=== PATIENT | male | born 1935 | race Caucasian/White ===

== ENCOUNTER 2020-03-22 09:40 | Emergency (ER) | payer MEDICARE ==
--- NOTE | 2020-03-22 09:53 | ED Physician Documentation ---
PD HPI UPPER EXT INJURY - Stated complaint Stated Complaint: LEFT ARM LAC - Chief complaint Chief Complaint: Laceration - History obtained from History obtained from: Patient, Family (spouse) - History of Present Illness Location: Left, Arm Type of injury: Fall, Blunt / blow (he says he was doing stretching exercise in bathroom with leg up on sink edge, and he lost balance and fell sideways, striking left upper arm on sink edge/corner. Did not fall to ground nor strike head. Has large laceration left upper arm. 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 No: Moving Associated symptoms: No: Weakness, Numbness Contributing factors: Anticoagulated. No: Prior ortho surgery Similar symptoms before: Has not had sx before Review of Systems Constitutional: denies: Fever, Chills Nose: denies: Rhinorrhea / runny nose, Congestion Throat: denies: Sore throat Cardiac: denies: Chest pain / pressure Respiratory: denies: Cough GI: denies: Abdominal Pain, Nausea, Vomiting, Diarrhea Neurologic: denies: Altered mental status, Head injury PD PAST MEDICAL HISTORY - Past Medical History Past Medical History: No Cardiovascular: None Neuro: None Endocrine/Autoimmune: None - Allergies Allergies/Adverse Reactions: Allergies Allergy/AdvReac Type Severity Reaction Status Date / Time Penicillins Allergy Anaphylaxis Verified 03/22/20 09:49 PD ED PE NORMAL - Vitals Vital signs reviewed: Yes - General General: Alert and oriented X 3, No acute distress, Well developed/nourished - HEENT HEENT: Atraumatic - Neck Neck: Supple, no meningeal sign, No bony TTP, No adenopathy - Cardiac Cardiac: No murmur - Respiratory Respiratory: Clear bilaterally, Other (no chestwall tendrness) - Abdomen Abdomen: Soft, Non tender - Derm Derm: Normal color, Warm and dry - Extremities Extremities: Other (left upper arm anteriorly over mid biceps shows a diagonal laceration full thickness through skin and fatty layer. It exposes the muscle sheath without disruption of it. Brachial artery/vein noted and intact. Good biceps flexion strength. ) - Neuro Neuro: Alert and oriented X 3, No motor deficit, No sensory deficit, Normal spee ch Eye Opening: Spontaneous Motor: Obeys Commands Verbal: Oriented GCS Score: 15 Results - Vitals Vitals: Vital Signs - 24 hr 03/22/20 03/22/20 03/22/20 09:41 11:26 12:21 Temperature 36.7 C 36.7 C 36.5 C Heart Rate 78 51 L 52 L Respiratory 19 18 18 Rate Blood Pressure 167/75 H 151/73 H 150/83 H O2 Saturation 99 100 98 Oxygen O2 Source Room air - Labs Labs: Laboratory Tests 03/22/20 10:10 Whole Blood INR 1.8 H Procedures - Laceration (location) left upper arm Length in cm: 6 Wound type: Linear, Into subcut fat, Clean. No: Into muscle Neurovascular status: Sensory intact, Motor intact, Vascular intact Tendon involvement: Tendon intact Anesthesia: Lidocaine 1% with epi Wound Preparation: Irrigated copiously NS, Wound explored, To the base, Wound edges modified (rough torn edge trimmed to crisp.). No: FB identified Deep layer closure: Vicryl, size #-0 - enter number (5), # sutures - enter number (10), Other (running subdermal) Skin layer closure: Nylon, Running, Size #-0 - enter number (4), Sutures - enter # (28) Other: Patient tolerated well, No complications, Neurovascular intact, Dressing applied, Tetanus UTD Complexity: Intermediate PD MEDICAL DECISION MAKING - ED course Complexity details: considered differential (fell over and struck upper arm, but did not fall to ground nor strike head. So did not jocelynn feel it was a "trauma" per se. ), d/w patient Departure - Departure Disposition: 01 Home, Self Care Clinical Impression: Laceration of left upper arm Qualifiers: Encounter type: initial encounter Qualified Code(s): S41.112A - Laceration without foreign body of left upper arm, initial encounter Condition: Stable Instructions: ED Laceration All Comments: It is okay to wash and shower. Clean off the wound twice a day with soap and water, or peroxide and water. Apply some antibiotic ointment to it to keep it moist. Also to watch for signs of infection such as purulence, redness or increasing pain. Return to your primary care or the ER at the specified time for suture removal. Suture removal 10 to 12 days. Light activity with the arm only for 3 days or so and then progress to normal after that. Tylenol as needed for pain Discharge Date/Time: 03/22/20 12:22
[2020-03-22] MEDS ORDERED: LIDOCAINE 1%-EPI 1:100000 20 ML MDV SUBQ STA (09:59)
[2020-03-22 12:22] VITALS: BP 150/83
== END 2020-03-22 12:22 | disposition home or self-care (01) ==
LOC: ED 09:40
DX: S41.112A Laceration without foreign body of left upper arm, initial encounter (principal); X50.1XXA Overexertion from prolonged static or awkward postures, initial encounter; W18.49XA Other slipping, tripping and stumbling without falling, initial encounter; Y93.B9 Activity, other involving muscle strengthening exercises; Y92.002 Bathroom of unspecified non-institutional (private) residence as the place of occurrence of the external cause; Z79.01 Long term (current) use of anticoagulants
CPT/HCPCS: 12032; 85610

== ENCOUNTER 2020-03-24 13:01 | Observation (INO) | payer MEDICARE ==
[2020-03-24] MEDS ORDERED: NITROGLYCERIN SL 0.4 MG TABLET SL STA ×2 (13:44→14:44)
--- NOTE | 2020-03-24 13:46 | ED Physician Documentation ---
History of Present Illness - Stated complaint Stated Complaint: CHEST PX - Chief complaint Chief Complaint: Cardiac - Additonal information Additional information: 84-year-old male presents to the emergency department for evaluation of left-s ided chest pain that began this morning about 9 AM. He reports that it feels like a sprain. Pain radiates from the left to the right side. No radiation to the arm of the jaw. No vomiting or diaphoresis. He does endorse fatigue. He has a history of atrial fibrillation but denies any history of coronary artery disease or previous SC. He has a history of stress test and echocardiograms completed a number of years ago in [place]. He is in the process of moving to [facility]. denies dyspnea, deneis n/v/urianry frequency, abdominal pain Non-smoker occasional alcohol. meds: aldactone 25 mg qd bumex 0.5 mg qod bisoprolol 10 mg qd coumadin 2.5 mg wed; 5 mg every other day PD PAST MEDICAL HISTORY - Past Medical History Cardiovascular: None Neuro: None Endocrine/Autoimmune: None - Allergies Allergies/Adverse Reactions: Allergies Allergy/AdvReac Type Severity Reaction Status Date / Time Penicillins Allergy Anaphylaxis Verified 03/24/20 13:15 PD ED PE NORMAL - General General: Alert and oriented X 3, No acute distress - HEENT HEENT: Atraumatic, EOMI - Neck Neck: Supple, no meningeal sign, No adenopathy - Cardiac Cardiac: Strong equal pulses, Other (irregularly irregular). 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 Eye Opening: Spontaneous Motor: Obeys Commands Verbal: Oriented GCS Score: 15 Results - Vitals Vitals: Vital Signs - 24 hr 03/24/20 03/24/20 03/24/20 13:03 13:45 14:26 Temperature 37 C Heart Rate 92 99 101 H Respiratory 16 14 22 Rate Blood Pressure 138/83 H 138/86 H 139/42 H O2 Saturation 98 100 98 Oxygen O2 Source Room air - EKG (time done) 1308 Rate: Rate (enter#) (105) Rhythm: Atrial fibrillation Mcguffey: Normal Intervals: Normal [place] QRS: Normal Ischemia: ST depression (lateral leads) Compare to prior EKG: Old EKG unavailable - Labs Labs: Laboratory Tests 03/24/20 03/24/20 03/24/20 13:40 13:40 13:40 WBC 7.0 RBC 3.57 L Hgb 12.3 L Hct 34.7 L MCV 97.2 H MCH 34.5 H MCHC 35.4 RDW 13.8 Plt Count 151 MPV 9.7 Neut # (Auto) 5.6 Lymph # (Auto) 0.6 L Craven # (Auto) 0.5 Eos # (Auto) 0.3 Baso # (Auto) 0.0 Absolute Nucleated RBC 0.00 Nucleated RBC % 0.0 Manual Slide Review Indicated WBC Morphology NORMAL APPEARANCE Platelet Estimate NORMAL (130-450,000) Platelet Morphology NORMAL APPEARANCE RBC Morph Micro Appear 1+ ANISOCYTOSIS PT INR Sodium 130 L Potassium 4.9 Chloride 93 L Carbon Dioxide 28 Anion Gap 9.0 BUN 24 H Creatinine 1.0 Estimated GFR (MDRD) 71 L Glucose 107 H Calcium 9.5 Total Bilirubin 0.7 AST 33 ALT 19 Alkaline Phosphatase 74 Troponin I High Sens 16.3 Total Protein 7.6 Albumin 4.1 Globulin 3.5 Albumin/Globulin Ratio 1.2 Lipase 85 H 03/24/20 13:40 WBC RBC Hgb Hct MCV MCH MCHC RDW Plt Count MPV Neut # (Auto) Lymph # (Auto) Craven # (Auto) Eos # (Auto) Baso # (Auto) Absolute Nucleated RBC Nucleated RBC % Manual Slide Review WBC Morphology Platelet Estimate Platelet Morphology RBC Morph Micro Appear PT 27.0 H INR 2.6 H Sodium Potassium Chloride Carbon Dioxide Anion Gap BUN Creatinine Estimated GFR (MDRD) Glucose Calcium Total Bilirubin AST ALT Alkaline Phosphatase Troponin I High Sens Total Protein Albumin Globulin Albumin/Globulin Ratio Lipase - Rads (name of study) CXR Radiology: Final report received (It is compatible COPD with probable scarring in the lung apices. No acute consolidation. Cardiomegaly.) PD MEDICAL DECISION MAKING - ED course Complexity details: reviewed results, re-evaluated patient, considered differential, d/w patient, d/w family ED course: 84-year-old male presents to the emergency department with a chief complaint of left-sided chest pain that radiated to the right chest. He does have a history of atrial fibrillation but no previous history of coronary artery disease SC or stent placement. Initial EKG showed atrial fib with mild ST depression in the lateral leads. High-sensitivity troponin was not elevated. However he has a heart score of 5 putting him at moderate risk for a major adverse cardiac event. He will be brought into the hospital in observation status for likely stress test and echocardiogram tomorrow. I have spoken with admitting hospitalist Dr. Johanny ernandez who is agreed to evaluate the patient. His chest x-ray shows no acute focal opacity though cardiomegaly is appreciated. He is anticoagulated on Coumadin with an INR that is therapeutic. Departure - Departure Disposition: ED Place in Observation Clinical Impression: Hyponatremia Chest pain Qualifiers: Chest pain type: unspecified Qualified Code(s): R07.9 - Chest pain, unspecified Atrial fibrillation Qualifiers: Atrial fibrillation type: longstanding persistent Qualified Code(s): I48.11 - Longstanding persistent atrial fibrillation
--- NOTE | 2020-03-24 13:55 | XRAY Report ---
PROCEDURE: Chest 1 View X-Ray INDICATIONS: Chest pain TECHNIQUE: One view of the chest was acquired. COMPARISON: None. FINDINGS: Surgical changes and devices: None. Lungs and pleura: There are linear opacities in the lung apices, left greater than right, suggestive of scarring. Hyperinflation of the lungs demonstrated with mild flattening of the hemidiaphragms com patible with COPD. No focal consolidation. No pleural effusions or pneumothorax. Mediastinum: There is a suspected hiatal hernia. Heart size is enlarged. Bones and chest wall: No suspicious bony lesions. Overlying soft tissues appear unremarkable. IMPRESSION: 1. Findings compatible with COPD with probable scarring in the lung apices. No acute consolidation. 2. Cardiomegaly. Reviewed by: Nabil Salcedo MD on 03/24/2020 1:54 PM PDT Approved by: Nabil Salcedo MD on 03/24/2020 1:54 PM PDT Station ID: [id number]
[2020-03-24 13:58] LABS: BASOPHILS % (AUTO) 0.6 %; EOSINOPHILS # (AUTO) 0.3 10^3/uL (0.0-0.7); EOSINOPHILS % (AUTO) 3.8 %; HGB - HEMOGLOBIN 12.3 g/dL (14.0-18.0); LYMPHOCYTES # (AUTO) 0.6 10^3/uL (1.5-3.5); LYMPHOCYTES % (AUTO) 7.8 %; MEAN CORPUSCULAR HEMOGLOBIN 34.5 pg (27.0-31.0); MEAN CORPUSCULAR HGB CONC 35.4 g/dL (32.0-36.0); MEAN CORPUSCULAR VOLUME 97.2 fL (80.0-94.0); MEAN PLATELET VOLUME 9.7 fL (7.4-11.4); MONOCYTES # (AUTO) 0.5 10^3/uL (0.0-1.0); MONOCYTES % (AUTO) 7.1 %; NEUTROPHILS # (AUTO) 5.6 10^3/uL (1.5-6.6); NEUTROPHILS % (AUTO) 80.1 %; PLT - PLATELET COUNT 151 10^3/uL (130-450); RED BLOOD COUNT 3.57 10^6/uL (4.70-6.10); RED CELL DISTRIBUTION WIDTH 13.8 % (12.0-15.0)
[2020-03-24 14:08] LABS: ALBUMIN 4.1 g/dL (3.2-5.5); ALBUMIN/GLOBULIN RATIO 1.2 (1.0-2.2); BILIRUBIN,TOTAL 0.7 mg/dL (0.2-1.0); CALCIUM 9.5 mg/dL (8.5-10.3); TOTAL PROTEIN 7.6 g/dL (6.7-8.2)
[2020-03-24 14:19] LABS: INR 2.6 (0.8-1.2)
[2020-03-24 14:30] LABS: PLATELET ESTIMATE, MANUAL NORMAL (130-450,000) (NORMAL); PLATELET MORPHOLOGY NORMAL APPEARANCE (NORMAL); RBC MORPHOLOGY (MULTIPLE) 1+ ANISOCYTOSIS (NORMAL)
[2020-03-24] MEDS ORDERED: SODIUM CHLORIDE FLUSH 0.9% 10 ML SYRINGE IVP PRN (14:55)
[2020-03-24] MEDS ORDERED: ONDANSETRON 4 MG/2 ML VIAL IVP PRN (14:55)
[2020-03-24] MEDS ORDERED: MORPHINE 2 MG/ML CARPUJECT IVP PRN (14:55)
[2020-03-24] MEDS ORDERED: ACETAMINOPHEN 325 MG TABLET PO PRN (14:55)
[2020-03-24] MEDS ORDERED: NITROGLYCERIN SL 0.4 MG TABLET SL PRN (15:00)
[2020-03-24] MEDS ORDERED: SODIUM CHLORIDE 0.9% 1,000 ML IV SCH (15:00)
--- NOTE | 2020-03-24 15:10 | HISTORY & PHYSICAL EXAMINATION ---
Chief Complaint - Chief Complaint Chief Complaint: chest pain History of Present Illness - Admitted From Admitted From:: ER - History Obtained From Records Reviewed: [facility] History obtained from: Pt - History of Present Illness HPI Comment/Other: This is a 84-year-old male with A past medical history of atrial fibrillation on Coumadin, hypertension, COPD, who presents to the emergency department for complain of bilateral chest pain that began this morning about 9 AM. Patient reported he had a fall on Sunday when he did exercise, then he go to the ER have 21 suture on his left arm. After he had a fall, he feels some chest pain bilaterally. He reports that it feels like a sprain. Pain is sharp and radiates from the left to the right side chest, positional pain as well. He report laying at bed he feel more pain, but siting up he feel less pain. He denies radiation to the arm of the jaw, denies nausea or vomiting or diaphoresis. He has a history of stress test and echocardiograms completed a number of years ago in [place]. He bought a house in here and He is in the process of moving to [facility]. He denies fever, shortness of breathing, abdominal pain, headache, nausea, vomiting, diarrhea.In routine laboratory testing in the ER, initially troponin is negative for acute NC, EKG show A fibrillation. Chest x- ray review compatible with COPD, no acute consolidation, cardiomegaly. Patient is planning to have stress test in the hospital. Discussed the care goal with the patient, patient would like to have full code. History - Past Medical History Cardiovascular: reports: None Respiratory: reports: COPD Neuro: reports: None Endocrine/Autoimmune: reports: None - Past Surgical History General: reports: Hiatal hernia repair - Family & Social History Family History: Mother: , Father: , COPD/Emphysema Family History Comment/Other: Patient reported for his father at age 48 from COPD complication. His mother from ageing, he does not know exactly etiology. 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[employer], he bought a house in [facility] and in the process to move to the [place].He denies any history of cigarette smoking, alcohol abuse or drug problem - POLST Patient has POLST: No Meds/Allgy - Home Medications Home Medications: Ambulatory Orders Medication Instructions Recorded Confirmed Bumetanide 0.5 mg PO DAILY 03/24/20 03/24/20 Cholecalciferol (Vitamin D3) 25 mcg PO DAILY 03/24/20 03/24/20 [Vitamin D3] Spironolactone 25 mg PO DAILY 03/24/20 03/24/20 Vitamin B Complex 1 cap PO DAILY 03/24/20 03/24/20 Warfarin [Coumadin] 3.5 mg PO .Sunday03/24/20 03/24/20 Warfarin [Coumadin] 5 mg PO .[id number] 03/24/20 03/24/20 bisoproloL fumarate [Bisoprolol 10 mg PO DAILY 03/24/20 03/24/20 Fumarate] - Allergies Allergies/Adverse Reactions: Allergies Allergy/AdvReac Type Severity Reaction Status Date / Time Penicillins Allergy Anaphylaxis Verified 03/24/20 13:15 Review of Systems - Constitutional Constitutional: denies: Fatigue, Fever, Chills, Weakness, Poor appetite, Diaphoresis, Night sweats - Eyes Eyes: denies: Pain, Blurred vision, Spots in vision, Field loss, Vision loss, Dipolpia - Ears, Nose & Throat Ears, Nose & Throat: denies: Ear pain, Vertigo, Nasal pain, Nasal discharge, Nosebleeds, Nasal congestion, Sore throat, Mouth lesions, Bleeding gums - Cardiovascular Cariovascular: reports: Chest pain. denies: Irregular heart rate, Palpitations, Edema, Lightheadedness, Syncope, Exertional dyspnea, Decr. exercise tolerance - Respiratory Respiratory: denies: Cough, Sputum production, Wheezing, Snoring, Hemoptysis, Orthopnea, SOB at rest, SOB with exertion, Apnea - Gastrointestinal Gastrointestinal: denies: Abdominal pain, Constipation, Diarrhea, Rectal bleeding, Black stools, Bloody stools, Nausea, Vomiting, Margarito blood emesis, Coffee grounds emesis - Genitourinary Genitourinary: denies: Dysuria, Frequency, Urgency, Hematuria, Incontinence, Flank pain, Nocturia - Musculoskeletal Musculoskeletal: denies: Muscle pain, Back pain, Muscle aches, Stiffness, Limited range of motion, Muscle weakness, Gout, Joint pain - Integumentary Integumentary: denies: Rash, Pruritis, Lesions, Dryness, Lumps, Pigment changes - Neurological Neurological: denies: General weakness, Focal weakness, Headache, Dizziness, Numbness, Memory problems, Pre-existing deficit, Abnormal gait, Seizures, Incoordination, Slurred speech - Psychiatric Psychiatric: denies: Depression, Suicidal, Delusions, Hallucinations, Homicidal - Endocrine Endocrine: denies: Polyuria, Polydypsia, Polyphagia, Intolerance to cold - Hematologic/Lymphatic Hematologic/Lymphatic: denies: Anemia, Petechiae, Blood clots, Lymphadenopathy, Bleeding tendencies Exam - Vital Signs Vital Signs: Vital Signs x48h Temp Pulse Resp BP Pulse Ox 03/24/20 14:26 101 H 22 139/42 H 98 03/24/20 13:45 99 14 138/86 H 100 03/24/20 13:03 37 C 92 16 138/83 H 98 - Physical Exam General Appearance: positive: No acute distress, Alert. negative: Lethargic Eyes Bilateral: positive: Normal inspection, PERRL, No lid inflammation ENT: positive: ENT inspection nml, No signs of dehydration. negative: Purulent nasal drainage, Dry mucous membranes Neck: positive: Nml inspection, Thyroid nml, Trachea midline. negative: Thyromegaly, Stiff neck, Tracheal deviation Respiratory: positive: Chest non-tender, No respiratory distress. negative: Wheezes, Rales, Rhonchi Cardiovascular: positive: Irregularly irregular, Systolic murmur, Diastolic murmur. negative: No murmur, Tachycardia, Bradycardia Peripheral Pulses: positive: 2+ Abdomen: positive: Non-tender, No organomegaly, Nml bowel sounds, No distention. negative: Tenderness, Guarding, Rebound Back: positive: Nml inspection. negative: CVA tenderness (R), CVA tenderness (L) Skin: positive: Color nml, No rash, Warm, Dry, Other (left arm with dress, pt re port he had suture on left arm after he had a fall. he denies pain, Full ROM). negative: Cyanosis, Diaphoresis, Pallor Extremities: positive: Non-tender, Full ROM. negative: Calf tenderness, Jen's sign/cords Neurologic/Psychiatric: positive: Oriented x3, Motor nml, Sensation nml, Mood/affect nml. negative: Weakness, Sensory loss, Facial droop, Slurred/abnml speech, Depressed mood/affect Sepsis Event Note (H) - Evaluation Current Stage of Sepsis: Ruled out Conclusion/Plan - Problem List (1) Chest pain Conclusion/Plan: Patient complain chest pain, initiated troponin is negative, EKG reviewed A fibrillation. Nitroglycerin release his chest pain. Patient reported he has no stress test for many years. Plan:Stress test on tomorrow, continue serial troponin test, resume patient home Coumadin, continue telemetry and vital signs monitor, morphine, nitroglycerin as needed.Will hold aspirin since patient INR is 2.6. check lipid panel, order ECHO Qualifiers: Chest pain type: unspecified Qualified Code(s): R07.9 - Chest pain, unspecified (2) Atrial fibrillation Conclusion/Plan: Patient has history of A fibrillation on Coumadin, we will resume patient beta- radha, resume Coumadin, continue check PT and INR. Continue telemetry and vital signs monitor Qualifiers: Atrial fibrillation type: longstanding persistent Qualified Code(s): I48.11 - Longstanding persistent atrial fibrillation (3) Hyponatremia Conclusion/Plan: Sodium 130, Mild hyponatremia. Likely mild hypovolemia and hyponatremia, patient was already given 1 L of normal saline in the ER, will continue laboratory secretary (4) HTN (hypertension) Conclusion/Plan: Stable, will resume home blood pressure medicine after confirmed (5) Laceration of left upper arm Conclusion/Plan: Patient reported he had a fall in Sunday and that he had sutures after he visited the ER, patient denies swelling or pain, patient had a full range of motion in the left arm. order dressing change. Qualifiers: Encounter type: initial encounter Qualified Code(s): S41.112A - Laceration without foreign body of left upper arm, initial encounter (6) Cardiac murmur Conclusion/Plan: Patient had systolic murmur in the physical examination. We will do echo to review.Patient denies syncope or loss of conscious in his fall. - Lab Results Fish Bones: 03/25/20 04:50 03/25/20 04:50 Core Measures - Anticipated LOS I expect patient to be DC'd or transferred within 96 hours.: Yes - DVT/VTE - Prophylaxis VTE/DVT Device ordered at admit?: Yes VTE/DVT Prophylaxis med ordered at admit?: Yes
[2020-03-24] MEDS: SODIUM CHLORIDE FLUSH 0.9% 10 ML SYRINGE IVP SCH ×2 (17:06→23:33)
[2020-03-24] MEDS: PANTOPRAZOLE 40 MG TABLET PO SCH (17:06)
--- NOTE | 2020-03-24 17:11 | PHARMACY PROGRESS NOTE ---
- Best Possible Medication History Admit Date and Time: 03/24/20 1456 Processed by: Pharmacy Medication History completed: Yes Patient Interview: Completed Secondary Source(s): Physician records, Pharmacy records, Insurance records (PATIENT INTERVIEWED BY CALCULATION CLERK. PATIENT AND SPOUSE ABLE TO CONFIRM HOME MEDICATIONS ) As the person ultimately responsible for medication therapy, providers are able to order a medication from an existing home medication list in [facility] via the "Reconcile Routine" prior to Confirmation of that medication by technical support engineer. Such practice is discouraged except when the physician, in their clinical angel gment, deems that a medical need exists for a medication without regard to previous use.
[2020-03-24] MEDS ORDERED: WARFARIN 1 MG TABLET PO SCH ×2 (18:00→18:30)
[2020-03-24] MEDS ORDERED: WARFARIN 5 MG TABLET PO SCH (18:00)
[2020-03-24] MEDS ORDERED: METOPROLOL TARTRATE 25 MG TABLET PO SCH (21:00)
[2020-03-24] MEDS: BACITRACIN ZINC OINT 1 PACKET TOP SCH (21:27)
[2020-03-24] MEDS: METOPROLOL TARTRATE 25 MG TABLET PO SCH (21:28)
[2020-03-25 05:07] LABS: BASOPHILS % (AUTO) 0.4 %; HGB - HEMOGLOBIN 11.4 g/dL (14.0-18.0); LYMPHOCYTES % (AUTO) 11.3 %; MEAN CORPUSCULAR HGB CONC 35.1 g/dL (32.0-36.0); MEAN PLATELET VOLUME 9.9 fL (7.4-11.4); MONOCYTES # (AUTO) 0.9 10^3/uL (0.0-1.0); MONOCYTES % (AUTO) 9.3 %; NEUTROPHILS # (AUTO) 7.2 10^3/uL (1.5-6.6); NEUTROPHILS % (AUTO) 78.6 %; PLT - PLATELET COUNT 140 10^3/uL (130-450); RED BLOOD COUNT 3.35 10^6/uL (4.70-6.10); RED CELL DISTRIBUTION WIDTH 13.9 % (12.0-15.0); WHITE BLOOD COUNT 9.1 x10^3/uL (4.8-10.8)
[2020-03-25 05:14] LABS: INR 2.7 (0.8-1.2)
[2020-03-25 05:22] LABS: BUN - BLOOD UREA NITROGEN 24 mg/dL (6-20); CALCIUM 9.4 mg/dL (8.5-10.3); CARBON DIOXIDE - CO2 25 mmol/L (21-32); CHLORIDE 96 mmol/L (101-111); CHOL/HDL RATIO 1.9 (<5.0); CHOLESTEROL 128 mg/dL; CREATININE 0.9 mg/dL (0.6-1.2); GLUCOSE 113 mg/dL (70-100); HDL CHOLESTEROL 66 mg/dL; LDL CHOLESTEROL,CALCULATED 51 mg/dL; LDL/HDL RATIO 0.8 (<3.6); MAGNESIUM 1.9 mg/dL (1.7-2.8); SODIUM 131 mmol/L (135-145); VLDL CHOLESTEROL 11 mg/dL
[2020-03-25] MEDS: PANTOPRAZOLE 40 MG TABLET PO SCH (06:07)
[2020-03-25] MEDS: BACITRACIN ZINC OINT 1 PACKET TOP SCH (08:51)
[2020-03-25] MEDS: METOPROLOL TARTRATE 25 MG TABLET PO SCH (08:51)
[2020-03-25] MEDS: SODIUM CHLORIDE FLUSH 0.9% 10 ML SYRINGE IVP SCH (08:51)
[2020-03-25] MEDS ORDERED: ENOXAPARIN 40 MG/0.4 ML SYRINGE SUBQ SCH (09:00)
[2020-03-25] MEDS ORDERED: BISOPROLOL FUMARATE 10 MG PO SCH (09:00)
[2020-03-25] MEDS ORDERED: REGADENOSON 0.4 MG/5 ML SYRINGE IVP ONE (12:26)
[2020-03-25] MEDS ORDERED: AMINOPHYLLINE 500 MG/20 ML VIAL ONE (12:26)
[2020-03-25] MEDS ORDERED: TC-99M/TETROFOSMIN 1.38 MG/30 ML VIAL IVP ONE (13:28)
[2020-03-25] MEDS ORDERED: WARFARIN 5 MG TABLET PO SCH (14:00)
--- NOTE | 2020-03-25 14:52 | CARDIAC PROCEDURE NOTE ---
DATE OF SERVICE: 03/25/2020 Physician: Carlie Mcdonough MD INDICATION: Chest pain. CARDIAC RISK FACTORS 1. Advanced age. 2. Male gender. DESCRIPTION OF PROCEDURE: After signing informed consent, the patient underwent a modified Jed-protocol treadmill stress test with nuclear myocardial perfusion imaging. RESTING HEART RATE: 70. PEAK HEART RATE: 164 (greater than 100% predicted maximum heart rate for age). RESTING BLOOD PRESSURE: 141/81. PEAK BLOOD PRESSURE: 171/93. The patient exercised for 2 minutes 43 seconds on a [id number] treadmill stress test. He achieved a peak heart rate of 164 (119% PMHR) and 2.3 METs. The patient developed no chest pain. He reported no shortness of breath. He reported his perceived exertion at 11/20 on the Dayday scale. He had slight difficulty adjusting to treadmill walking. RESTING EKG: Atrial fibrillation, rate 70, vertical axis, LVH voltage. EKG AT PEAK: 1.[address] depressions developed in leads II, III, aVF, and V4-V6. SUMMARY 1. Abnormal resting EKG with atrial fibrillation present and LVH present. 2. Infero-lateral ischemic changes do develop by EKG criteria at a good level of stress vs strain changes of LVH. 3. Fair exercise tolerance. 4. No chest pain or shortness of breath occurred with this exertion. 5. Nuclear images reported separately. 6. This patient's cardiac risk based on all the above: Moderate. TD: 03/25/2020 13:31 MUSA
--- NOTE | 2020-03-25 16:57 | Nuclear Medicine Report ---
PROCEDURE: Rest and exercise myocardial perfusion SPECT with gated imaging and ejection fraction INDICATIONS: chest pain RADIOPHARMACEUTICAL: 9.7 mCi Tc-99m Myoview IV at rest and 24.3 mCi Tc-99m Myoview IV at peak exerci se. [id number] was performed. TECHNIQUE: Radiopharmaceutical was injected at peak stress test, and also at rest. SPECT images wer e obtained. SPECT myocardial perfusion images were displayed in short axis, horizontal long axis, an d vertical long axis views. Gated images were reviewed using Auto[employer] software. COMPARISON: None available. FINDINGS: Raw data: There is good myocardial labeling by radiotracer. No significant motion artifacts. Lung- to-heart ratio is 0.35 (normal is less than 0.38 for tetrafosmin tracer). Left ventricle function: Gated images demonstrate normal left ventricle wall thickening. No segment al wall motion abnormality. No transient ischemic dilation; TID is 1.0 (normal less than 1.3). The left ventricle resting end-diastolic volume is normal. Left ventricle stress ejection fraction is 64 %; normal values are above 45%. Myocardial perfusion: There is normal distribution of activity in the left and right ventricular shane cardium. No fixed or reversible perfusion defects. IMPRESSION: 1. Normal myocardial perfusion images. No reversible or fixed perfusion defect to suggest myocardial ischemia or infarction. 2. Normal left ventricular volume and systolic function. 3. 1.[address] depression during exercise, likely secondary to left ventricle hypertrophy with strain. The result was discussed with Dr. Mcdonough. PQRS ATTESTATIONS: Measure 322 - Is this imaging test primarily performed on a low-risk surgery patient for preoperative evaluation within 30 days preceding their low-risk non-cardiac surgery? Low-risk surgery is defined as cardiac or myocardial infarction less than 1%, including (but not limited to) endoscopic pr ocedures, superficial procedures, cataract surgery, and excisional breast surgery: Answer: No Measure 323 - Is this imaging test performed primarily for the monitoring of an asymptomatic patient who had percutaneous coronary intervention on the visit date or within 2 years of the visit date? An swer: No Measure 324 - Is this imaging test performed primarily for the initial detection and risk assessment on an asymptomatic, low coronary heart disease patient? Low CHD risk definition = clinicians should consider the maximum number of available patient factors used to estimate risk based on [place] (A TP III criteria), typically age, gender, diabetes, smoking status, and use of blood pressure medicati on, and integrate age appropriate estimates for missing elements, such as LDL or standard blood press ure. Answer: No Reviewed by: Angelica Farris MD on 03/25/2020 3:56 PM [facility] Approved by: Angelica Farris MD on 03/25/2020 3:56 PM AK[facility] Station ID: [id number]
[2020-03-25 17:08] VITALS: BP 134/85
--- NOTE | 2020-03-25 17:09 | Discharge Plan ---
Discharge Plan Problem Reviewed?: Yes Disposition: Home, Self Care Condition: Stable Diet: Cardiac Activity Restrictions: Activity as Tolerated Shower Restrictions: No (fall precaution) Instruction Topics: ED Chest Pain Atypical Unkn Cause Health Concerns: chest pain Plan of Treatment: your stress test is negative for myocardial ischemia or infarction, it is likely atypical, you state your chest pain is resolved as well. as you request, we print all your test and image studies for you. advise you followup with your road marker as out-pt Care Goals: stabilization and improvement of your medical conditions Assessment: discussed the care plan with you, you understood. Additional Instructions or Follow Up instructions: you may followup with your PCP in 1-2 weeks, followup with your road marker as out-pt. should your symptoms return or worsen, you may present ER or call 911 for help. No Smoking: If you smoke, Please STOP! Call for help.
--- NOTE | 2020-03-25 17:11 | DISCHARGE SUMMARY ---
Discharge Summary Admit Date: 03/24/20 Discharge Date: 03/25/20 Discharging Provider: Noel Espinoza Primary Care Provider: no yet. pt is in the process to move to [facility] Condition at Discharge: Stable Discharge Disposition: 01 Home, Self Care Discharge Facility Name: home - DIAGNOSES Discharge Diagnoses with Status of Each Condition: (1) Chest pain Resolved, patient state he has no more chest pain. Stress test is negative for acute myocardial ischemia. Serial troponin test is negative for acute MN, EKG show atrial fibrillation. Echo reviewed EF 55%. pt request All test results and imaging study to print for him.Continue home medication regiment, follow-up with his dairy bacteriologist as outpatient (2) Atrial fibrillation Stable, continue home medications (3) Hyponatremia Mild hyponatremia, stable and improved. (4) HTN (hypertension) Stable (5) Laceration of left upper arm Stress change for patient, laceration site of the left upper arm has no infection, no swelling, no erythema. (6) Cardiac murmur Echo review no aortic stenosis, moderate Tricuspid regurgitation. stable. - HPI History of Present Illness: This is a 84-year-old male with A past medical history of atrial fibrillation on Coumadin, hypertension, COPD, who presents to the emergency department for complain of bilateral chest pain that began this morning about 9 AM. Patient reported he had a fall on Sunday when he did exercise, then he go to the ER have 21 suture on his left arm. After he had a fall, he feels some chest pain bilaterally. He reports that it feels like a sprain. Pain is sharp and radiates from the left to the right side chest, positional pain as well. He report laying at bed he feel more pain, but siting up he feel less pain. He denies radiation to the arm of the jaw, denies nausea or vomiting or diaphoresis. He has a history of stress test and echocardiograms completed a number of years ago in [place]. He bought a house in here and He is in the process of moving to [facility]. He denies fever, shortness of breathing, abdominal pain, headache, nausea, vomiting, diarrhea.In routine laboratory testing in the ER, initially troponin is negative for acute MN, EKG show A fibrillation. Chest x- ray review compatible with COPD, no acute consolidation, cardiomegaly. Patient is planning to have stress test in the hospital. Discussed the care goal with the patient, patient would like to have full code. - HOSPITAL COURSE Hospital Course: Patient was admitted for chest pain work-up. Patient has no more chest pain af ter admission in the hospital. Stress test was done in the hospital show Normal myocardial perfusion images, no reversible or fixed perfusion deficit to suggest myocardial ischemia or infarction,Normal left ventricular volume and systolic function. Echo show 55% of EF, Moderate tricuspid regurgitation. Serial troponin test are negative. Patient will discharge as hemodynamically stable condition - ALLERGIES Allergies/Adverse Reactions: Allergies Allergy/AdvReac Type Severity Reaction Status Date / Time Penicillins Allergy Anaphylaxis Verified 03/24/20 13:15 - MEDICATIONS Home Medications: Ambulatory Orders Medication Instructions Recorded Confirmed Bumetanide 0.5 mg PO DAILY 03/24/20 03/24/20 Cholecalciferol (Vitamin D3) 25 mcg PO DAILY 03/24/20 03/24/20 [Vitamin D3] Spironolactone 25 mg PO DAILY 03/24/20 03/24/20 Vitamin B Complex 1 cap PO DAILY 03/24/20 03/24/20 Warfarin [Coumadin] 3.5 mg PO .Sunday03/24/20 03/24/20 Warfarin [Coumadin] 5 mg PO .MOTUFRSAS 03/24/20 03/24/20 bisoproloL fumarate [Bisoprolol 10 mg PO DAILY 03/24/20 03/24/20 Fumarate] - PHYSICAL EXAM AT DISCHARGE General Appearance: positive: No acute distress, Alert. negative: Lethargic Eyes Bilateral: positive: Normal inspection, PERRL, No lid inflammation ENT: positive: ENT inspection nml, No signs of dehydration. negative: Purulent nasal drainage Neck: positive: Nml inspection, Thyroid nml, Trachea midline. negative: Thyromegaly, Stiff neck, Tracheal deviation Respiratory: positive: Chest non-tender, No respiratory distress, Breath sounds nml. negative: Wheezes, Rales, Rhonchi Cardiovascular: positive: Irregularly irregular, Diastolic murmur. negative: Tachycardia, Bradycardia Peripheral Pulses: positive: 2+ Abdomen: positive: Non-tender, Nml bowel sounds, No distention. negative: Tenderness, Guarding, Rebound Back: positive: Nml inspection. negative: CVA tenderness (R), CVA tenderness (L) Skin: positive: Color nml, No rash, Warm, Dry. negative: Cyanosis, Diaphoresis, Pallor Extremities: positive: Non-tender, Full ROM, Nml appearance. negative: Calf tenderness Neurologic/Psychiatric: positive: Oriented x3, Motor nml, Sensation nml, Mood/affect nml. negative: Weakness, Sensory loss, Facial droop, Slurred/abnml speech, Depressed mood/affect - LABS Result Diagrams: 03/25/20 04:50 03/25/20 04:50 - SEPSIS Current Stage of Sepsis: Ruled out - FOLLOW UP Follow Up: your stress test is negative for myocardial ischemia or infarction, it is likely atypical, you state your chest pain is resolved as well. as you request, we gli nt all your test and image studies for you. advise you followup with your dairy bacteriologist as out-pt. you may followup with your PCP in 1-2 weeks, followup with your dairy bacteriologist as out-pt. should your symptoms return or worsen, you may present ER or call 911 for help. - TIME SPENT Time Spent in Discharge (Minutes): 30
[2020-03-31] MEDS ORDERED: WARFARIN 1 MG TABLET PO SCH (14:00)
== END 2020-03-25 18:00 | disposition home or self-care (01) ==
LOC: ED 13:01 → MS2 14:55
PROVIDERS: ADMIT Nurse Practitioner Gerontology; ATTEND Nurse Practitioner Gerontology
DX: R07.9 Chest pain, unspecified (principal); E87.1 Hypo-osmolality and hyponatremia; I48.11 Longstanding persistent atrial fibrillation; I10 Essential (primary) hypertension; I07.1 Rheumatic tricuspid insufficiency; Z79.01 Long term (current) use of anticoagulants; J44.9 Chronic obstructive pulmonary disease, unspecified; S41.112D Laceration without foreign body of left upper arm, subsequent encounter; W19.XXXD Unspecified fall, subsequent encounter; Z79.899 Other long term (current) drug therapy
CPT/HCPCS: 36415; 71045; 78452; 80048; 80053; 80061; 83690; 83735; 84484; 85025; 85610; 93005; 93017; 93306; 99284; 99285; A9270; A9500; A9502; G0378; 83721

== ENCOUNTER 2020-04-01 12:25 | Emergency (ER) | payer MEDICARE ==
[2020-04-01 12:44] VITALS: BP 141/78
--- NOTE | 2020-04-01 13:03 | ED Physician Documentation ---
History of Present Illness - Stated complaint Stated Complaint: STICHES REMOVAL - Chief complaint Chief Complaint: Laceration - History obtained from History obtained from: Patient - History of Present Illness Timing: How many days ago (10) Pain level max: 0 Pain level now: 0 - Additonal information Additional information: 84-year-old male presents to the emergency department to have sutures removed from his left upper arm. Denies any redness, swelling, drainage, fevers. Otherwise asymptomatic. Review of Systems Constitutional: denies: Fever PD PAST MEDICAL HISTORY - Past Medical History Cardiovascular: None Respiratory: COPD Neuro: None Endocrine/Autoimmune: None - Past Surgical History Past Surgical History: Yes General: Hiatal hernia repair - Present Medications Home Medications: Ambulatory Orders Medication Instructions Recorded Confirmed Bumetanide 0.5 mg PO DAILY 03/24/20 03/24/20 Cholecalciferol (Vitamin D3) 25 mcg PO DAILY 03/24/20 03/24/20 [Vitamin D3] Spironolactone 25 mg PO DAILY 03/24/20 03/24/20 Vitamin B Complex 1 cap PO DAILY 03/24/20 03/24/20 Warfarin [Coumadin] 3.5 mg PO .Sunday03/24/20 03/24/20 Warfarin [Coumadin] 5 mg PO .MOTUFRSAS 03/24/20 03/24/20 bisoproloL fumarate [Bisoprolol 10 mg PO DAILY 03/24/20 03/24/20 Fumarate] - Allergies Allergies/Adverse Reactions: Allergies Allergy/AdvReac Type Severity Reaction Status Date / Time Penicillins Allergy Anaphylaxis Verified 03/24/20 13:15 - Social History Does the pt smoke?: No Smoking Status: Never smoker Does the pt drink ETOH?: Yes Does the pt have substance abuse?: No - Immunizations Immunizations are current?: Yes - POLST Patient has POLST: No PD ED PE NORMAL - Vitals Vital signs reviewed: Yes - General General: Alert and oriented X 3, No acute distress - Extremities Extremities: Other (Well-healed lacerations to the left upper arm. No signs of infection) - Neuro Neuro: Alert and oriented X 3 Results - Vitals Vitals: Vital Signs - 24 hr 04/01/20 12:39 Heart Rate 80 Respiratory 16 Rate Blood Pressure 141/78 H O2 Saturation 97 Oxygen O2 Source Room air Procedures - Suture/staple Removal (location) Left upper arm Suture/staple removal: # sutures (all), No complications PD MEDICAL DECISION MAKING - ED course Complexity details: considered differential, d/w patient ED course: Sutures removed. Wounds are well-healed. No signs of infection. Warnings of infection and instructions on wound care given at bedside. Also counseled on how to minimize scarring. Patient counseled regarding signs and symptoms for which I believe and urgent re-evaluation would be necessary. Patient with good understanding of and agreement to plan and is comfortable going home at this time This document was made in part using voice recognition software. While efforts are made to proofread this document, sound alike and grammatical errors may occur. Departure - Departure Disposition: 01 Home, Self Care Clinical Impression: Visit for suture removal Condition: Good Instructions: ED Wound Check Sutr Remove No Infec Follow-Up: your,doctor as needed [Other] Comments: Return if you worsen. Follow-up with your doctor as needed for further care.
== END 2020-04-01 13:08 | disposition home or self-care (01) ==
LOC: ED 12:25
DX: Z48.02 Encounter for removal of sutures (principal); S41.112D Laceration without foreign body of left upper arm, subsequent encounter

== ENCOUNTER 2021-07-04 13:00 | Outpatient (CLI) | payer MEDICARE ==
--- NOTE | 2021-07-04 14:28 | XRAY Report ---
PROCEDURE: Shoulder 3 View RT INDICATIONS: RIGHT SHOULDER PAIN TECHNIQUE: 4 views of the shoulder were acquired. COMPARISON: None. FINDINGS: Bones: No fractures or dislocations. Mild glenohumeral joint space loss with trace spurring of the glenoid. Subcortical cystic changes seen at the acromial clavicular joint. No suspicious bony lesions . Visualized ribs appear intact. Soft tissues: No suspicious soft tissue calcifications. 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 Reviewed by: Breanna Ayers MD on 07/04/2021 2:26 PM PST Approved by: Breanna Ayers MD on 07/04/2021 2:26 PM PST Station ID: [id number]
== END 2021-07-04 23:59 ==
LOC: DI.N 13:00
PROVIDERS: ATTEND Physician Assistant
DX: M19.011 Primary osteoarthritis, right shoulder (principal)